=== PATIENT | female | born 1980 | race Caucasian/White ===

== ENCOUNTER 2017-01-28 10:55 | Emergency (ER) | payer MEDICAID ==
[~2017-01-28 10:55] MED LIST: CELEXA40 MG PO; DOXYCYCLINE 10100 MG PO; FERROUS SULFATE65 MG PO; LANAMINS1 CAP PO; METRONIDAZOLE500 MG PO; PROVERA10 MG PO
[2017-01-28] MEDS ORDERED: CELEXA 20MG20 MG/TA1 PO (11:00)
[2017-01-28] MEDS ORDERED: PREDNISONE10 MG PO (12:38)
[2017-01-28] MEDS ORDERED: PEPCID 20MG TAB20 MG PO (12:38)
[2017-01-28] MEDS ORDERED: CEFDINIR300 MG PO (12:38)
[2017-01-28 12:49] VITALS: BP 126/87
== END 2017-01-28 12:46 | disposition home or self-care (01) ==
LOC: ED 10:55
DX: J32.9 Chronic sinusitis, unspecified (principal); H65.03 Acute serous otitis media, bilateral; T36.0X5A Adverse effect of penicillins, initial encounter; F17.210 Nicotine dependence, cigarettes, uncomplicated
CPT/HCPCS: J1885; J2930

== ENCOUNTER 2017-01-31 16:36 | Emergency (ER) | payer MEDICAID ==
[~2017-01-31 16:36] MED LIST changes: +CEFDINIR300 MG PO; +CELEXA 20MG20 MG/TA1 PO; +PEPCID 20MG TAB20 MG PO; +PREDNISONE10 MG PO
[2017-01-31 21:18] VITALS: BP 128/77
== END 2017-01-31 21:18 | disposition home or self-care (01) ==
LOC: ED 16:36
DX: T88.7XXA Unspecified adverse effect of drug or medicament, initial encounter (principal); F41.9 Anxiety disorder, unspecified; F17.210 Nicotine dependence, cigarettes, uncomplicated
CPT/HCPCS: J2060; J7030

== ENCOUNTER 2017-02-02 18:10 | Emergency (ER) | payer MEDICAID ==
[2017-02-02] MEDS ORDERED: ATIVAN0.5 MG PO (22:01)
[2017-02-02 22:26] VITALS: BP 135/88
== END 2017-02-02 22:26 | disposition home or self-care (01) ==
LOC: ED 18:10
DX: F41.9 Anxiety disorder, unspecified (principal); F43.0 Acute stress reaction
CPT/HCPCS: J1200; J2060; J2930; J7030

== ENCOUNTER 2018-11-04 16:01 | Emergency (ER) | payer MEDICAID ==
[~2018-11-04] VITALS: Ht 165.1 cm; Wt 79.5 kg
[~2018-11-04 16:01] MED LIST changes: +ATIVAN0.5 MG PO
[2018-11-04 16:44] LABS: EOS % 0.5 % (1.0-5.0); HEMATOCRIT 38.4 % (37.0-47.0); HEMOGLOBIN 13.4 g/dL (12.5-16.0); LYMPH# 1.7 (1.50-4.00); MEAN CELL VOLUME 90 fl (78-100); MEAN CORPUSCULAR HEMOGLOBIN 31 pg (27-31); MEAN CORPUSCULAR HGB CONC 35 g/dL (33-37); MEAN PLATELET VOLUME 10.3 fl (7.4-10.4); MONO # 0.5 (0.20-0.80); PLATELET COUNT 207 K/mm3 (130-400); RED BLOOD COUNT 4.28 M/mm3 (4.10-5.30); RED CELL DISTRIBUTION WIDTH 12.9 % (11.5-14.5); WHITE BLOOD COUNT 8.3 K/mm3 (4.8-10.8)
[2018-11-04 17:01] LABS: ALBUMIN 3.9 g/dL (3.5-5.0); CALCIUM 8.9 mg/dL (8.4-10.2); POTASSIUM 3.9 mmol/L (3.6-5.0); TOTAL BILIRUBIN 0.3 mg/dL (0.2-1.3); TOTAL PROTEIN 6.6 g/dL (6.3-8.2)
[2018-11-04 17:07] LABS: TROPONIN-I < 0.03 ng/mL (0.00-0.06)
[2018-11-04 17:38] LABS: PH-URINE 5.5 (5.0 - 8.0); URINE APPEARANCE CLEAR; URINE COLOR YELLOW
[2018-11-04 17:39] LABS: URINE PROTEIN(semi-quant) TRACE mg/dL (NEGATIVE)
[2018-11-04 17:40] LABS: URINE BILIRUBIN NEGATIVE (NEGATIVE); URINE BLOOD NEGATIVE (NEGATIVE); URINE GLUCOSE NEGATIVE (NEGATIVE); URINE KETONE 1+ (NEGATIVE); URINE LEUKOCYTE ESTERASE NEGATIVE (NEGATIVE); URINE NITRATE NEGATIVE (NEGATIVE); URINE UROBILINOGEN NORMAL (NORMAL); URINE WBC 0-1 /hpf (0-3)
[2018-11-04 18:21] VITALS: BP 114/67
== END 2018-11-04 18:26 | disposition home or self-care (01) ==
LOC: ED 16:01
PROVIDERS: Nurse Practitioner Primary Care
DX: O99.89 Other specified diseases and conditions complicating pregnancy, childbirth and the puerperium (principal); R06.02 Shortness of breath; O99.332 Smoking (tobacco) complicating pregnancy, second trimester; Z3A.16 16 weeks gestation of pregnancy; Z88.0 Allergy status to penicillin

== ENCOUNTER → 2020-07-23 | Outpatient (CLI) | payer MEDICAID | LOC: RAD 09:00 | DX: E04.1 Nontoxic single thyroid nodule (principal) ==

== ENCOUNTER → 2022-03-10 | Outpatient (CLI) | payer MEDICAID ==
[2022-03-10 16:57] LABS: BASO # 0.02 K/mm3 (0.02-0.10); EOS # 0.15 K/mm3 (0.04-0.40); EOS % 1.3 % (1.0-5.0); HEMOGLOBIN 14.8 g/dL (12.5-16.0); LYMPH# 3.34 K/mm3 (1.50-4.00); MEAN CELL VOLUME 93 fl (78-100); MEAN CORPUSCULAR HEMOGLOBIN 31 pg (27-31); MEAN CORPUSCULAR HGB CONC 33 g/dL (33-37); NEU # 7.13 K/mm3 (1.40-6.50); PLATELET COUNT 310 K/mm3 (130-400); RED BLOOD COUNT 4.84 M/mm3 (4.10-5.30); RED CELL DISTRIBUTION WIDTH 12.6 % (11.5-14.5); WHITE BLOOD COUNT 11.5 K/mm3 (4.8-10.8)
[2022-03-10 18:22] LABS: ERYTHROCYTE SEDIMENTATION RATE 7 mm/hr (0-20)
== END ==
LOC: LAB 16:39
PROVIDERS: Nurse Practitioner Family
DX: M79.642 Pain in left hand (principal); R22.32 Localized swelling, mass and lump, left upper limb